=== PATIENT | male | born 1935 | race Caucasian/White ===

== ENCOUNTER 2018-10-04 05:12 | Observation (INO) | payer OTHER ==
[~2018-10-04] VITALS: Ht 175.3 cm; Wt 78.5 kg
[~2018-10-04 05:12] MED LIST: ASPIRIN EC81 MG PO; BETA GLUCAN (1-31 GM MISC; FINASTERIDE5 MG PO; LEVOTHYROXINE88 MCG PO; NIACIN500 M1 PO; PROPRANOLOL HCL10 MG PO; RED YEAST RICE600 M1 PO
--- OUTSIDE RECORDS SUMMARY | 2018-10-04 05:16 | XMS ---
PreManage Notification: KIKI MOISE Security Senior Data Warehouse Architect Events No recent Security Events currently on file CRITERIA MET - POL CARE PROVIDERS Navarro Meyer MD Primary Care Current PHONE: [phone] orsindhu Case or Maintenance Fitter Current PHONE: Unknown Ramírez has no Care Guidelines for this patient. Oriana VISIT COUNT (12 MO.) 1 GLYNN Minaya TOTAL 1 NOTE: Visits indicate total known visits. ED/UCC VISIT TRACKING (12 MO.) 10/04/2018 05:13 GLYNN Marcos [place] TYPE: Emergency COMPLAINT: - ALTR LOC INPATIENT VISIT TRACKING (12 MO.) No inpatient visits to display in this time frame [email or web address]
[2018-10-04] MEDS ORDERED: PRIMIDONE50 MG PO (05:34)
[2018-10-04] MEDS ORDERED: CLOPIDOGREL75 MG PO (05:35)
--- NOTE | 2018-10-04 07:29 | EKG ---
[facility] [address] [facility] [place] [address] Signed Normal sinus rhythm Nonspecific T wave abnormality Abnormal ECG No previous ECGs available Confirmed by DANE ALICEA MD ([id number]) on 10/04/2018 7:28:48 AM Electronically Signed By: DANE ALICEA MD 10/04/18 0729 PATIENT NAME: KIKI MOISE Electrocardiogram DATE OF : 37 PHYSICIAN: DANE ALICEA MD REPORT #: [id number] REPORT IS CONFIDENTIAL AND NOT TO BE RELEASED WITHOUT AUTHORIZATION
--- NOTE | 2018-10-04 09:10 | NUR ---
82 YR OLD MALE PATIENT ADMITTED TO ROOM 126 FOR VALENTINO PRITCHETT FROM ED VIA STRECTHER WITH DX OF SEIZURES/HYPOXEMIA. UPON ADMIT PATIENT IS AWAKE AND ALERT IS ABLE T FOLLOW COMMANDS. PATIENT IN ROOM. ADMISSION PROCESS STARTED. PATIENT HAS PAIN IN UPPER MID BACK AND AROUND RIB CAGE. PATIENT STATES THIS PAIN STARTED TODAY. DENIES DOING HEAVY LIFTING IN LAST COUPLE OF DAYS.
--- NOTE | 2018-10-04 10:30 | NUR ---
UP AT BEDSIDE TO VOID. HAS EXTREME PAIN IN BACK AND AROUND RIB CAGE. DR. STEVENS AWARE. NIKKIES RECIEVED.
--- NOTE | 2018-10-04 11:00 | NUR ---
carotid DOP SCAN DONE AT BED SIDE.
--- NOTE | 2018-10-04 11:30 | NUR ---
ECHO DONE AT BEDSIDE. PATIENT TOLERATED WELL.
--- NOTE | 2018-10-04 11:50 | NUR ---
SITTING UP IN BED FOR LUNCH, TAKING CLEAR LIQUIDS.
--- NOTE | 2018-10-04 12:20 | NUR ---
PT IN BED, COVERS PULLED UP TO HIS NECK. HE IS ALERT, AND INVOLVED IN ALL OF THE CONVERSATION HE CAN HEAR. PT STATED HE IS NOT IN PAIN AT THE MOMENT, BUT DID EXPRESS DISAPPOINTMENT IN THAT HE WAS TO GO ICE FISHING TODAY! HIS IS AT BS. THEY REQUESTED PRAYER,I ALSO SENSED THAT PT WAS ALITTE CHILLED BIT AND REQUESTED A WARM BLANKET. LINDSEY BRENNER BROUGHT ONE IN. WILL FOLLOW NEEDED
--- NOTE | 2018-10-04 12:40 | NUR ---
TOOK CLEAR LIQUIDS, C/O NAUSEA. HR TO 36. IS DIAPHORTIC, HOB TO APPROX 20 DEGREES. BP-130/76.
--- NOTE | 2018-10-04 12:45 | NUR ---
KIKI IS AN 82 YEAR OLD MALE WHO WAS FOUND AT HOME IN BED UNRESPONSIVE BY HIS THIS AM. HE WAS AWAKE IN BED WITH PRESENT AT BEDSIDE. ORIENTED X3. RECEPTIVE/EXPRESIVE LANGUAGE SCREENING AND COGNITIVE SCREENING REVEALED NO CONCERNS WARRANTED A COMPLETE COGNITIVE LIGNUISTIC EVALUATION. ANDREZ SWALLOW PROTOCOL BSE ADMINISTERED; PT EXHIBITED NO S/SX OF DYSPHAGIA ON BOTH ATTEMPTS OF YSP. DISCUSSED RESULTS OF SCREENING WITH RN; THIS THX TOLD RN THAT I WOULD NOT BE BILLING FOR FULL EVALUATION DUE TO PT PRESENTATION. INFORMED NSG TO CALL THX BACK IF CONCERNS EMERGE.
--- NOTE | 2018-10-04 12:50 | NUR ---
morphine 2 mg iv given for c/o pain in back and ribs.
--- NOTE | 2018-10-04 15:45 | NUR ---
PHYS THERAPY HERE TO WORK WITH PATIENT. WALKED WITH PATIENT USING WALKER. TOLERATED WELL. HAS INCREASED PAIN WHEN TURNING WITH AMBULATION. STATES THE PAIN IS NOW MORE IN THE LEFT RIB CAGE AREA. MOANING WHEN GETTING BACK TO BED. O2 OFF AT THIS TIME.
[2018-10-04] MEDS ORDERED: EZETIMIBE10 MG PO (16:20)
--- NOTE | 2018-10-04 17:45 | NUR ---
REPORT TO MEDICAL FLOOR.
--- NOTE | 2018-10-04 18:10 | NUR ---
TO MEDICAL FLOOR VIA CHAIR.
--- NOTE | 2018-10-04 18:20 | NUR ---
NEW ADMIT TO THE FLOOR. PT AWAK, ALERT AND ORIENTED X3. PT REPORTING 3/10 LOWER BACK/LEFT RIB PAIN. PT IS ON RA, RESP EVEN AND NON LABORED. IV FLUIDS D5 1/2NS@50ML/HR. ORIENTED PT TO ROOM AND CALL LIGHT. PT REPORTED HE HAD DINNER THIS EVENING ALREADY. PT IN BED, ALARM INTACT. PT DENIES NEEDS. PERSONAL SUPPLIES AND CALL LIGHT WITHIN REACH.
[2018-10-04] MEDS ORDERED: TYLENOL325 MG PO (18:27)
--- NOTE | 2018-10-04 18:27 | NUR ---
MED REC COMPLETE
--- NOTE | 2018-10-04 22:47 | NUR ---
NEW IV STARTED. PATIENT TOLERATED ACTIVITY WELL. IV INFUSING PER ORDER. NO NEEDS NOTED. BED ALARM ON FOR SAFETY. CALL LIGHT IN REACH.
--- NOTE | 2018-10-05 00:49 | NUR ---
PATIENT UP TO THE BATHROOM WITH DOUGHNUT GLAZIER'S.
--- NOTE | 2018-10-05 00:54 | NUR ---
1 PA WITH WALKER TO THE BATHROOM. PATIENT IS BACK IN BED. CALL LIGHT AND SIDE TABLE WITHIN REACH. BED ALARM ON.
--- NOTE | 2018-10-05 03:04 | NUR ---
PATIENT RESTING QUIETLY AT THIS TIME SUPINE, EYES CLOSED, RESPIRATIONS REGULAR AND EVEN AT 16. PREPAIRING FOR ASSESSMENT.
--- NOTE | 2018-10-05 04:00 | NUR ---
PATIENTS BED ALARM ALERTED STAFF. PATIENT ASSISTED TO THE RESTROOM A 1PA W/FWW. PATIENT WAS ABLE TO VOID. PATIENT IS BACK RESTING IN BED. PATIENT DENIES ANY FURTHER NEEDS. CALL LIGHT IN REACH. BED ALARM ON FOR SAFETY.
--- NOTE | 2018-10-05 08:33 | NUR ---
PATIENT UP TO BATHROOM AND BACK TO CHAIR, 1PA FWW. VISITOR IN ROOM. CALL LIGHT IN REACH. NO FURTHER NEEDS AT THIS TIME.
--- NOTE | 2018-10-05 09:04 | NUR ---
PT AWAKE, ALERT AND ORIENTED X3. PT IS ON RA, RESP EVEN AND NON LABORED. ADMIN MORPHINE 2MG IVP FOR REPORTS OF 6/10 LFT RIB/LOWER BACK PAIN. PT DENIES CHEST PAIN AND SOB. PT TOLERATED BREAKFAST WELL. PERSONAL SUPPLIES AND CALL LIGHT WITHIN REACH. NO NEEDS AT THIS TIME. PT DENIES NEED TO VOID. AT BEDSIDE.
--- NOTE | 2018-10-05 10:35 | NUR ---
DR. COPE IN CONSULTING WITH PT AND .
--- NOTE | 2018-10-05 11:40 | NUR ---
IN TALKING WITH PT THEY STATE THEIR PREFERENCES HAVE BEEN TAKEN INTO CONSIDERATION AND THEY UNDERSTAND THAT WE ARE LOOKING FOR HIS SAFETY AND GOOD TRANSITION TO HOME. THEY UNDERSTAND HIS MEDICAL REASON FOR BEING IN THE HOSPITAL AND HOW TO MANAGE HIS HEALTH CARE. WE ALSO TALKED ABOUT HIS MEDICATIONS AND THEY STATE UNDERSTANDING OF WHAT HE IS TAKING AND THE SIDE EFFECTS TO WATCH FOR.
--- NOTE | 2018-10-05 12:29 | NUR ---
PT DECIDED TO TRY AMBULATING IN [place] WITH STAFF. PT'S WATCHING EVER SO INTENTLY. SHE STATED THE "THEY HAVEN'T FOUND THE CAUSE YET, AND WE ALL THOUGHT HE MIGHT WELL WALK". PT ALERT, FOCUSED WILL CONTINUE TO FOLLOW
[2018-10-05] MEDS ORDERED: GABAPENTIN300 MG PO (12:51)
[2018-10-05] MEDS ORDERED: OXYCODONE HCL5 MG PO (12:54)
[2018-10-05] MEDS ORDERED: POLYETHYLENE GL17 GM PO (12:55)
[2018-10-05] MEDS ORDERED: SENNA8.6 MG PO (12:55)
--- NOTE | 2018-10-05 13:43 | NUR ---
SENT A REFERRAL TO DR GILLETTE OFFICE IN [place] FOR A NEUROLOGY FOLLOW UP APPOINTMENT, AND FAXED THEM THE DISCHARGE SUMMARY AND ALSO THE H&P. THEY WILL CALL THE PATIENT WITH A FOLLOW UP APPOINTMENT. THE PATIENT HAS THEIR INFORMATION AND WILL CALL THEM WITHIN A FEW DAYS IF HE HAS NOT HEARD BACK FROM THEM. ALSO CALLED DR GIBBS OFFICE TO SCHEDULE A FOLLOW UP APPOINTMENT AND THEY SAID ROBERT WILL CALL THE PT WITH AN APPOINTMENT TIME.
== END 2018-10-05 15:35 | disposition home or self-care (01) ==
LOC: ED 05:12 → MS 05:14 → CCU 05:14 → MS 18:10
PROVIDERS: ADMIT Internal Medicine
DX: R56.9 Unspecified convulsions (principal); R09.02 Hypoxemia; I25.10 Atherosclerotic heart disease of native coronary artery without angina pectoris; G25.0 Essential tremor; I25.2 Old myocardial infarction; M62.830 Muscle spasm of back; I65.23 Occlusion and stenosis of bilateral carotid arteries; M48.54XA Collapsed vertebra, not elsewhere classified, thoracic region, initial encounter for fracture; Z95.5 Presence of coronary angioplasty implant and graft; Z79.82 Long term (current) use of aspirin; Z79.899 Other long term (current) drug therapy
CPT/HCPCS: 36415; 36600; 70450; 71045; 71260; 80048; 80053; 80076; 81001; 82803; 82977; 83615; 83690; 83735; 83880; 84484; 85025; 85379; 85610; 85730; 93005; 93010; 93306; 93880; 96360; 96361; 96372; 96374; 96375; 96376; 97162; 97165; 99285-25; G0378; G0480; J1650; J2270; J2405; J7040; Q9967

== ENCOUNTER 2021-08-20 16:00 | Emergency (ER) | payer OTHER ==
[~2021-08-20] VITALS: Ht 175.3 cm; Wt 78.5 kg
[~2021-08-20 16:00] MED LIST changes: +CLOPIDOGREL75 MG PO; +EZETIMIBE10 MG PO; +GABAPENTIN300 MG PO; +OXYCODONE HCL5 MG PO; +POLYETHYLENE GL17 GM PO; +PRIMIDONE50 MG PO; +SENNA8.6 MG PO; +TYLENOL325 MG PO
[2021-08-20] MEDS ORDERED: AMLODIPINE BESYL5 MG PO (16:12)
[2021-08-20] MEDS ORDERED: LEVETIRACETAM500 MG PO (16:13)
[2021-08-20] MEDS ORDERED: METFORMIN HCL500 MG PO (16:13)
[2021-08-20] MEDS ORDERED: PRIMIDONE50 MG PO (19:50)
--- NOTE | 2021-08-21 11:27 | EKG ---
[facility] [address] [facility] [place] [address] Signed Normal sinus rhythm Left axis deviation Abnormal ECG When compared with ECG of 04-OCT-2018 05:46, No significant change was found Confirmed by CHLOÉ HUGO MD ([id number]) on 08/21/2021 11:27:18 AM Electronically Signed By: CHLOÉ HUGO MD 08/21/21 1127 PATIENT NAME: KIKI MOISE Electrocardiogram DATE OF : 37 PHYSICIAN: CHLOÉ HUGO MD REPORT #: [id number] REPORT IS CONFIDENTIAL AND NOT TO BE RELEASED WITHOUT AUTHORIZATION
== END 2021-08-21 08:55 | disposition short-term general hospital (02) ==
LOC: ED 16:00
DX: S06.6X0A Traumatic subarachnoid hemorrhage without loss of consciousness, initial encounter (principal); W01.10XA Fall on same level from slipping, tripping and stumbling with subsequent striking against unspecified object, initial encounter; I25.2 Old myocardial infarction; Z79.899 Other long term (current) drug therapy; Z79.84 Long term (current) use of oral hypoglycemic drugs; Z79.82 Long term (current) use of aspirin; Z20.822 Contact with and (suspected) exposure to COVID-19
CPT/HCPCS: 70450; 80048; 85025; 85610; 90471; 90715; 93005; 93010; 99285-25; C9803; U0003